=== PATIENT | female | born 1965 | race Caucasian/White ===

== ENCOUNTER 2018-01-07 19:10 | Emergency (ER) | payer BC ==
[~2018-01-07] VITALS: Ht 162.6 cm; Wt 91.4 kg
[~2018-01-07 19:10] MED LIST: ACTOS15 MG PO; ANTIVERT25 MG PO; ASPIR 8181 M1 PO; FLOVENT 11120 INHALA IH; GLUCOPHAGE500 MG PO; HUMALOG100 UNIT/1; HUMALOG100 UNIT/1 SC; HYDROCODON-ACE1 EAC7 PO; IBUPROFEN800 MG PO; LANTUS 10100 UNITS/ SC; LANTUS 10100 UNITS/ SQ; LEVAQUIN750 MG PO; LISINOPRIL-HCT1 EACH PO; LISINOPRIL2.5 MG; METFORMIN HCL500 M1 PO; MONTELUKAST SOD10 MG PO; PHENERGAN-CODE120 ML PO; PRAVACHOL40 MG PO; PREDNISONE50 MG PO; PRINIVIL10 MG PO; PRINIVIL5 MG; SINGULAIR10 MG PO
[2018-01-07] MEDS ORDERED: NAPROSYN500 MG PO (21:42)
[2018-01-07 21:57] VITALS: BP 180/83
== END 2018-01-07 21:58 | disposition home or self-care (01) ==
LOC: EME 19:10
DX: M77.32 Calcaneal spur, left foot (principal); M72.2 Plantar fascial fibromatosis; E11.9 Type 2 diabetes mellitus without complications; E78.5 Hyperlipidemia, unspecified; J45.909 Unspecified asthma, uncomplicated; Z88.2 Allergy status to sulfonamides
CPT/HCPCS: 73610; 73630; 99281; 99284; J1885